=== PATIENT | female | born 1960 | race Caucasian/White ===

== ENCOUNTER 2016-10-20 13:45 | Emergency (ER) | payer OTHER ==
[~2016-10-20] VITALS: Ht 170.2 cm; Wt 72.0 kg
[2016-10-20 13:45] VITALS: BP 153/89; PULSE 106; RESP 18; TEMP 98.7
[~2016-10-20 13:45] MED LIST: ESTR0.62 VAGINAL; LISI10TA3 PO
[2016-10-20 14:16] LABS: AUTOMATED NEUTROPHIL # 7.4 TH/MM3 (1.8-7.7); BASOPHIL # 0.1 TH/MM3 (0-0.2); BASOPHIL % 0.5 % (0.0-2.0); EOSINOPHIL # 0.1 TH/MM3 (0-0.4); EOSINOPHIL % 0.9 % (0.0-4.0); HEMATOCRIT 42.7 % (35.0-46.0); HEMO FLAGS DIFF FINAL; LYMPH % 21.2 % (9.0-44.0); LYMPHOCYTE # 2.3 TH/MM3 (1.0-4.8); MEAN CORPUSCULAR HEMOGLOBIN 32.2 PG (27.0-34.0); MEAN CORPUSCULAR HGB CONC 34.2 % (32.0-36.0); NEUT % 69.4 % (16.0-70.0); PLATELET COUNT 231 TH/MM3 (150-450); RED BLOOD COUNT 4.54 MIL/MM3 (4.00-5.30); RED CELL DISTRIBUTION WIDTH 13.5 % (11.6-17.2); WHITE BLOOD COUNT 10.7 TH/MM3 (4.0-11.0)
[2016-10-20 14:30] LABS: BICARBONATE 22.1 MEQ/L (21.0-32.0); POTASSIUM 3.9 MEQ/L (3.5-5.1)
[2016-10-20 15:00] VITALS: BP 157/91; PULSE 104; RESP 16; O2SAT 100
[2016-10-20] MEDS ORDERED: IOHEXOL 350 MG/ML 10 ML VIAL (for RAD DIAG) IV ONE (15:21)
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
[2016-10-20] MEDS ORDERED: IBUP-232 PO (16:38)
[2016-10-20] MEDS ORDERED: IBUPROFEN 600 MG TAB PO ONE (16:45)
[2016-10-20] MEDS ORDERED: LORazepam 2 MG/ML VIAL IV PUSH ONE (17:15)
[2016-10-20 18:00] VITALS: BP 142/62; PULSE 106; RESP 16; O2SAT 97
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
[2016-10-20 19:09] VITALS: BP 115/77; PULSE 115; RESP 17; O2SAT 97
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
[2016-10-20] MEDS ORDERED: KETOROLAC TROMETHAMINE 60 MG/2 ML (IM) VIAL IM ONE (19:45)
== END 2016-10-20 20:54 | disposition home or self-care (01) ==
LOC: NEPC 13:45
DX: S09.90XA Unspecified injury of head, initial encounter (principal); R51 Headache; R10.2 Pelvic and perineal pain; M54.2 Cervicalgia; I10 Essential (primary) hypertension; Z72.0 Tobacco use; V47.6XXA Car passenger injured in collision with fixed or stationary object in traffic accident, initial encounter
CPT/HCPCS: 70450; 71260; 72125; 72128; 72131; 72148; 73552; 74177; 80048; 85025; 96372; 96374; 99284; J1885; J2060; L0150; Q9967

== ENCOUNTER 2016-10-21 20:42 | Emergency (ER) | payer OTHER ==
[~2016-10-21] VITALS: Ht 170.2 cm; Wt 76.8 kg
[~2016-10-21 20:42] MED LIST changes: +IBUP-232 PO
[2016-10-21 20:44] VITALS: BP 123/91; PULSE 97; RESP 20; TEMP 98.2; O2SAT 95
[2016-10-21] MEDS ORDERED: SODIUM CHLORIDE 0.9% FLUSH 5 ML FLUSH IVF PRN (21:15)
[2016-10-21] MEDS ORDERED: SODIUM CHLOR 0.9% 1000 ML INJ 1,000 ML IV SCH (21:15)
[2016-10-21] MEDS ORDERED: ONDANSETRON HCL 4 MG/2 ML VIAL IV PUSH ONE ×2 (21:15→22:45)
[2016-10-21 21:33] LABS: AUTOMATED NEUTROPHIL # 3.1 TH/MM3 (1.8-7.7); BASOPHIL % 0.3 % (0.0-2.0); EOSINOPHIL # 0.1 TH/MM3 (0-0.4); EOSINOPHIL % 1.7 % (0.0-4.0); HEMATOCRIT 37.8 % (35.0-46.0); HEMO FLAGS DIFF FINAL; LYMPH % 43.4 % (9.0-44.0); LYMPHOCYTE # 3.2 TH/MM3 (1.0-4.8); MEAN CELL VOLUME 94.4 FL (80.0-100.0); MEAN CORPUSCULAR HEMOGLOBIN 31.3 PG (27.0-34.0); MEAN CORPUSCULAR HGB CONC 33.1 % (32.0-36.0); MONO % 10.2 % (0.0-8.0); NEUT % 44.4 % (16.0-70.0); PLATELET COUNT 200 TH/MM3 (150-450); RED CELL DISTRIBUTION WIDTH 13.4 % (11.6-17.2); WHITE BLOOD COUNT 7.1 TH/MM3 (4.0-11.0)
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
[2016-10-21 21:41] VITALS: O2SAT 98
[2016-10-21 21:41] LABS: CHLORIDE 108 MEQ/L (98-107); POTASSIUM 3.9 MEQ/L (3.5-5.1); SODIUM (NA) 142 MEQ/L (136-145)
[2016-10-21 21:44] LABS: ANION GAP 11 MEQ/L (5-15); BICARBONATE 23.5 MEQ/L (21.0-32.0); BLOOD UREA NITROGEN 29 MG/DL (7-18)
[2016-10-21 21:46] LABS: APTT (PATIENT) 25.3 SEC (24.3-30.1); PROTHROMBIN TIME - PATIENT 10.7 SEC (9.8-11.6)
[2016-10-21 21:47] LABS: ALT (GPT) 64 U/L (10-53); AST (GOT) 32 U/L (15-37); GLOMERULAR FILTRATION RATE 63 ML/MIN (>89)
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
[2016-10-21 21:49] VITALS: BP_SYST 126; BP_SYST 133; BP_SYST 134; BP_DIAS 74; BP_DIAS 79
[2016-10-21 21:49] LABS: TOTAL BILIRUBIN ADULT 0.3 MG/DL (0.2-1.0)
[2016-10-21 21:50] LABS: ALKALINE PHOSPHATASE 85 U/L (45-117)
[2016-10-21] MEDS ORDERED: MORPHINE SULFATE 4 MG/ML INJ IV PUSH ONE (22:45)
[2016-10-21 23:00] LABS: BLOOD, URINE SMALL (NEG); GLUCOSE,URINE NEG (NEG); KETONE, URINE TRACE mg/dL (NEG); NITRITE,URINE NEG (NEG)
[2016-10-21 23:13] LABS: URINE COLOR STRAW (YELLW/STRAW)
[2016-10-21 23:14] LABS: COMMENT (UR) CULT NOT INDICATED; CULTURE IF INDICATED CULT NOT INDICATED; RBC, URINE 0-3 /hpf (0-3); SQUAMOUS EPITHELIAL CELL URINE 0-5 /hpf (0-5); URIC ACID CRYSTALS, URINE FEW /hpf; WBC, URINE 0-2 /hpf (0-5)
[2016-10-21 23:15] VITALS: BP 129/84; PULSE 83; RESP 16; O2SAT 96
[2016-10-22] MEDS ORDERED: IOHEXOL 350 MG/ML 10 ML VIAL (for RAD DIAG) IV ONE (00:40)
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
[2016-10-22 01:59] VITALS: BP 106/70; PULSE 76; RESP 16; O2SAT 97
--- NOTE | 2016-10-22 11:06 | EKG ---
Date Performed: 10/21/2016 Time Performed: 21:26:24 PTAGE: 56 years EKG: Sinus rhythm . Normal ECG NO PREVIOUS TRACING DOCTOR: Von No Interpretating Date/Time 10/22/2016 11:04:47
== END 2016-10-22 02:26 | disposition home or self-care (01) ==
LOC: PHED 20:42
DX: S70.12XA Contusion of left thigh, initial encounter (principal); S70.11XA Contusion of right thigh, initial encounter; R06.02 Shortness of breath; R53.83 Other fatigue; R53.1 Weakness; I95.9 Hypotension, unspecified; F17.210 Nicotine dependence, cigarettes, uncomplicated; V43.62XA Car passenger injured in collision with other type car in traffic accident, initial encounter; Y93.I9 Activity, other involving external motion; Y92.410 Unspecified street and highway as the place of occurrence of the external cause; Y99.8 Other external cause status
CPT/HCPCS: 71010; 74177; 80053; 81001; 85025; 85610; 85730; 86850; 86900; 86901; 93005; 96361; 96374; 96375; 96376; 99285; J2270; J2405; J7030; Q9967

== ENCOUNTER 2017-03-30 10:59 | Emergency (ER) | payer OTHER ==
[~2017-03-30] VITALS: Ht 170.2 cm; Wt 75.0 kg
[2017-03-30 11:04] VITALS: BP 148/87; PULSE 106; RESP 16; TEMP 98.4; O2SAT 100
[2017-03-30] MEDS ORDERED: SODIUM CHLOR 0.9% 1000 ML INJ 1,000 ML IV SCH (11:23)
[2017-03-30 11:25] VITALS: O2SAT 100
[2017-03-30] MEDS ORDERED: ONDANSETRON HCL 4 MG/2 ML VIAL IVP ONE (11:30)
[2017-03-30] MEDS ORDERED: SODIUM CHLORIDE 0.9% FLUSH 10 ML FLUSH IV FLUSH PRN (11:30)
--- NOTE | 2017-03-30 11:33 | PD ---
HPI Chief Complaint: Abdominal Pain Time Seen by Provider: 11:17 Travel History International Travel<30 days: No Contact w/Intl Traveler<30days: No Traveled to known affect area: No History of Present Illness HPI The patient is 57 years old. She complains of a epigastric discomfort which radiates to the back in the region of the lower thoracic spine and into the region of the upper back between the scapula. Earlier in the week she developed nausea and had several episodes of diarrhea daily for 3 days. For the past 2 days she's had no diarrhea. Total body aches and pains were present at the time of onset of the nausea and diarrhea. The diarrhea was nonbloody. Whilst nauseated with diarrhea she lost her appetite and yesterday started eating soup and crackers. She has had no fever. PFSH Past Medical History Cardiovascular Problems: Yes (htn on meds) Diminished Hearing: No Hypertension: Yes Musculoskeletal: Yes (right hip and pelvic fx) ?: Not Menopausal: Yes : 5 Para: 4 Miscarriage: 1 Social History Alcohol Use: Yes (social ) Tobacco Use: Yes (1/2 PPD) Substance Use: No Allergies-Medications (Allergen,Severity, Reaction): Coded Allergies: Sulfa (Sulfonamide Antibiotics) (Unverified Allergy, Unknown, Doesn't remember , 03/30/17) metronidazole (Unverified Adverse Reaction, Severe, N/V, dizziness, ) Reported Meds & Prescriptions Reported Meds & Active Scripts Active Lortab (Hydrocodone-Acetaminophen) 5-325 Mg Tab 1-2 Tab PO Q6H PRN Reported Lisinopril 10 Mg Tab 20 Mg PO DAILY Review of Systems Except as stated in HPI: all other systems reviewed are Neg General / Constitutional: No: Fever Physical Exam Narrative GENERAL: 57-year-old female pleasant well-nourished well-developed SKIN: Warm and dry. HEAD: Atraumatic. Normocephalic. EYES: Pupils equal and round. No scleral icterus. No injection or drainage. ENT: No nasal bleeding or discharge. Mucous membranes pink and moist. NECK: Trachea midline. No JVD. CARDIOVASCULAR: Regular rate and rhythm. RESPIRATORY: No accessory muscle use. Clear to auscultation. Breath sounds equal bilaterally. GASTROINTESTINAL: Soft. No significant tenderness palpation on exam. MUSCULOSKELETAL: Extremities without clubbing, cyanosis, or edema. No obvious deformities. NEUROLOGICAL: Awake and alert. No obvious cranial nerve deficits. Motor grossly within normal limits. Five out of 5 muscle strength in the arms and legs. Normal speech. PSYCHIATRIC: Appropriate mood and affect; insight and judgment normal. Data Data Last Documented VS Vital Signs Date Time Temp Pulse Resp B/P (MAP) Pulse Ox O2 Delivery O2 Flow Rate FiO2 03/30/17 11:25 16 03/30/17 11:25 100 Room Air 03/30/17 11:04 98.4 106 148/87 (107) Vital signs reviewed Orders Orders Complete Blood Count With Diff (03/30/17 11:23) Comprehensive Metabolic Panel (03/30/17 11:23) Lipase (03/30/17 11:23) Urinalysis - C+S If Indicated (03/30/17 11:23) Iv Access Insert/Monitor (03/30/17 11:23) Ecg Monitoring (03/30/17 11:23) Oximetry (03/30/17 11:23) Ondansetron Inj (Zofran Inj) (03/30/17 11:30) Sodium Chlor 0.9% 1000 Ml Inj (Ns 1000 M (03/30/17 11:23) Sodium Chloride 0.9% Flush (Ns Flush) (03/30/17 11:30) Electrocardiogram (03/30/17 11:23) D-Dimer (03/30/17 11:23) Ct Pulmonary Angiogram (03/30/17 12:21) Troponin I (03/30/17 11:40) Iohexol 350 Inj (Omnipaque 350 Inj) (03/30/17 12:45) Labs Laboratory Tests Test 03/30/17 11:40 White Blood Count 5.8 TH/MM3 Red Blood Count 4.40 MIL/MM3 Hemoglobin 13.8 GM/DL Hematocrit 41.5 % Mean Corpuscular Volume 94.4 FL Mean Corpuscular Hemoglobin 31.4 PG Mean Corpuscular Hemoglobin Concent 33.3 % Red Cell Distribution Width 12.8 % Platelet Count 198 TH/MM3 Mean Platelet Volume 7.8 FL Neutrophils (%) (Auto) 44.7 % Lymphocytes (%) (Auto) 42.3 % Monocytes (%) (Auto) 10.3 % Eosinophils (%) (Auto) 2.3 % Basophils (%) (Auto) 0.4 % Neutrophils # (Auto) 2.7 TH/MM3 Lymphocytes # (Auto) 2.4 TH/MM3 Monocytes # (Auto) 0.6 TH/MM3 Eosinophils # (Auto) 0.1 TH/MM3 Basophils # (Auto) 0.0 TH/MM3 CBC Comment DIFF FINAL Differential Comment D-Dimer Quantitative (PE/DVT) 0.81 MG/L FEU Urine Collection Type CLEAN CATCH Urine Color YELLOW Urine Turbidity CLEAR Urine pH 6.0 Urine Specific [place] 1.007 Urine Protein NEG mg/dL Urine Glucose (UA) NEG mg/dL Urine Ketones NEG mg/dL Urine Occult Blood MOD Urine Nitrite NEG Urine Bilirubin NEG Urine Leukocyte Esterase NEG Urine RBC 4-9 /hpf Urine Squamous Epithelial Cells 0-5 /hpf Microscopic Urinalysis Comment CULT NOT INDICATED Urine Collection Time 11:40 Blood Urea Nitrogen 10 MG/DL Creatinine 0.67 MG/DL Random Glucose 99 MG/DL Total Protein 7.1 GM/DL Albumin 3.5 GM/DL Calcium Level 8.9 MG/DL Alkaline Phosphatase 86 U/L Aspartate Amino Transf (AST/SGOT) 32 U/L Alanine Aminotransferase (ALT/SGPT) 78 U/L Total Bilirubin 0.2 MG/DL Sodium Level 140 MEQ/L Potassium Level 3.5 MEQ/L Chloride Level 106 MEQ/L Carbon Dioxide Level 26.2 MEQ/L Anion Gap 8 MEQ/L Estimat Glomerular Filtration Rate 90 ML/MIN Troponin I LESS THAN 0.02 NG/ML Lipase 191 U/L MDM Medical Decision Making Medical Screen Exam Complete: Yes Emergency Medical Condition: Yes Medical Record Reviewed: Yes Differential Diagnosis Pancreatitis, esophageal hernia, atelectasis, coronary artery disease, effusion , pulmonary embolism Narrative Course CBC & BMP Diagram 03/30/17 11:40 Total Protein 7.1, Albumin 3.5, Calcium Level 8.9, Alkaline Phosphatase 86, Aspartate Amino Transf (AST/SGOT) 32, Alanine Aminotransferase (ALT/SGPT) 78 H, Total Bilirubin 0.2 The EKG reveals a sinus rhythm with a rate of 82 Lipase normal D-dimer 0.81 Last [address] Angiography 03/30/17 1221 Signed Impressions: Service Date/Time: Thursday, March 30, 2017 12:39 - CONCLUSION: 1. No PE is identified. Additionally, no abnormality is identified to explain the clinical symptoms. 2. Hepatic steatosis. Sven Wakefield MD Diagnosis Primary Impression: Epigastric discomfort Additional Impression: Atelectasis of left lung Referrals: Primary Care Physician 2 days Additional Instructions: You have a choice when it comes to health care, and we are glad that you chose [facility]. Hopefully, we have met your expectations on today's visit. You are welcome to return to [facility] at any time, as we are committed to meeting the health care needs of our community. Med/Other Pt SpecificInfo: Prescription(s) given Scripts Tramadol (Tramadol) 50 Mg Tab 100 MG PO Q6H Y for PAIN SCALE 6 TO 10, #20 TAB 0 Refills Prov: Abhijit Mendoza MD 03/30/17 Hydrocodone-Acetaminophen (Lortab) 5-325 Mg Tab 1-2 TAB PO Q6H Y for PAIN SCALE 6 TO 10, #15 TAB 0 Refills Prov: Abhijit Mendoza MD 03/30/17 Disposition: 01 DISCHARGE HOME Condition: Stable Abhijit Mendoza MD Mar 30, 2017 11:33
[2017-03-30 11:47] LABS: AUTOMATED NEUTROPHIL # 2.7 TH/MM3 (1.8-7.7); BASOPHIL % 0.4 % (0.0-2.0); BLOOD, URINE MOD (NEG); EOSINOPHIL # 0.1 TH/MM3 (0-0.4); EOSINOPHIL % 2.3 % (0.0-4.0); GLUCOSE,URINE NEG (NEG); HEMATOCRIT 41.5 % (35.0-46.0); HEMO FLAGS DIFF FINAL; KETONE, URINE NEG (NEG); LYMPH % 42.3 % (9.0-44.0); LYMPHOCYTE # 2.4 TH/MM3 (1.0-4.8); MEAN CELL VOLUME 94.4 FL (80.0-100.0); MEAN CORPUSCULAR HEMOGLOBIN 31.4 PG (27.0-34.0); MEAN CORPUSCULAR HGB CONC 33.3 % (32.0-36.0); MONO % 10.3 % (0.0-8.0); NEUT % 44.7 % (16.0-70.0); NITRITE,URINE NEG (NEG); PLATELET COUNT 198 TH/MM3 (150-450); RED CELL DISTRIBUTION WIDTH 12.8 % (11.6-17.2); WHITE BLOOD COUNT 5.8 TH/MM3 (4.0-11.0)
[2017-03-30 12:02] LABS: CHLORIDE 106 MEQ/L (98-107); POTASSIUM 3.5 MEQ/L (3.5-5.1); SODIUM (NA) 140 MEQ/L (136-145)
[2017-03-30 12:06] LABS: ANION GAP 8 MEQ/L (5-15); BICARBONATE 26.2 MEQ/L (21.0-32.0); BLOOD UREA NITROGEN 10 MG/DL (7-18)
[2017-03-30 12:09] LABS: ALT (GPT) 78 U/L (10-53); AST (GOT) 32 U/L (15-37); GLOMERULAR FILTRATION RATE 90 ML/MIN (>89)
[2017-03-30 12:10] LABS: TOTAL BILIRUBIN ADULT 0.2 MG/DL (0.2-1.0)
[2017-03-30 12:12] LABS: ALKALINE PHOSPHATASE 86 U/L (45-117)
[2017-03-30 12:28] LABS: COMMENT (UR) CULT NOT INDICATED; CULTURE IF INDICATED CULT NOT INDICATED; METHOD OF COLLECTION CLEAN CATCH; SQUAMOUS EPITHELIAL CELL URINE 0-5 /hpf (0-5); URINE COLOR YELLOW (YELLW/STRAW)
[2017-03-30] MEDS ORDERED: IOHEXOL 350 MG/ML 10 ML VIAL (for RAD DIAG) IVCONTRAST ONE (12:45)
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
[2017-03-30 13:30] VITALS: BP 144/89; PULSE 82; RESP 18; O2SAT 99
[2017-03-30] MEDS ORDERED: HYDR-3533 PO (13:30)
[2017-03-30] MEDS ORDERED: TRAM50TA PO (13:31)
--- NOTE | 2017-03-31 18:49 | EKG ---
Date Performed: 03/30/2017 Time Performed: 11:29:43 PTAGE: 57 years EKG: Sinus rhythm NORMAL ECG PREVIOUS TRACING : 10/21/2016 21.26 Compared to prior tracing no significant change DOCTOR: Checo Haque Interpretating Date/Time 03/31/2017 18:47:39
== END 2017-03-30 13:55 | disposition home or self-care (01) ==
LOC: PHED 10:59
DX: R10.13 Epigastric pain (principal); J98.11 Atelectasis; I10 Essential (primary) hypertension
CPT/HCPCS: 71275; 80053; 81001; 83690; 84484; 85025; 85379; 93005; 94150; 96360; 99285; J7030; Q9967

== ENCOUNTER 2017-07-23 14:20 | Emergency (ER) | payer OTHER ==
[~2017-07-23] VITALS: Ht 170.2 cm; Wt 76.0 kg
[~2017-07-23 14:20] MED LIST changes: -ESTR0.62 VAGINAL; +HYDR-3533 PO; -IBUP-232 PO; +TRAM50TA PO
[2017-07-23 14:26] VITALS: BP 161/97; PULSE 119; RESP 16; TEMP 98.8; O2SAT 98
--- NOTE | 2017-07-23 17:17 | PD ---
HPI Chief Complaint: Back/ Neck Pain or Injury Time Seen by Provider: 16:47 Travel History International Travel<30 days: No Contact w/Intl Traveler<30days: No Traveled to known affect area: No History of Present Illness HPI 57-year-old female presents to the ED for evaluation of burning pain in the sacral area, radiating to the buttocks, down the legs and into the feet. Described as a soreness that can also be burning, shooting pain. Rated 8/10. Ongoing for the last few weeks, worsening as of late. Patient can identify no acute injury to the area. She states that she "rides around on [place]." She denies numbness, tingling, weakness of the lower extremities. She endorses distant trauma of the pelvis and right hip with ORIF. She states that she was recently treated for bacterial vaginitis and that she feels as if the burning pain has "moved to the back." She denies urinary urgency, dysuria, vaginal discharge, changes in bowel habits, melena, hematochezia. PFSH Past Medical History Cardiovascular Problems: Yes (htn on meds) Diminished Hearing: No Hypertension: Yes Musculoskeletal: Yes (right hip and pelvic fx) Tetanus Vaccination: < 5 Years Influenza Vaccination: No ?: Not Menopausal: Yes : 5 Para: 4 Miscarriage: 1 Social History Alcohol Use: Yes (Social) Tobacco Use: Yes (Occ 5-6 cigs day ) Substance Use: No Allergies-Medications (Allergen,Severity, Reaction): Coded Allergies: Sulfa (Sulfonamide Antibiotics) (Unverified Allergy, Unknown, Doesn't remember , 07/23/17) metronidazole (Unverified Adverse Reaction, Severe, N/V, dizziness, ) Reported Meds & Prescriptions Reported Meds & Active Scripts Active Neurontin (Gabapentin) 300 Mg Cap 300 Mg PO BID Ibuprofen 600 Mg Tab 600 Mg PO Q8H Reported Lisinopril 10 Mg Tab 20 Mg PO DAILY Review of Systems Except as stated in HPI: all other systems reviewed are Neg Physical Exam Narrative GENERAL: Well-nourished, well-developed nontoxic appearing white female in no acute distress. SKIN: Focused skin assessment warm/dry. HEAD: Normocephalic. EYES: No scleral icterus. No injection or drainage. NECK: Supple, trachea midline. No JVD or lymphadenopathy. CARDIOVASCULAR: Regular rate and rhythm without murmurs, gallops, or rubs. RESPIRATORY: Breath sounds clear and equal bilaterally. No accessory muscle use. GASTROINTESTINAL: Abdomen soft, non-tender, nondistended. Active bowel sounds. MUSCULOSKELETAL: No cyanosis, or edema. 5/5 strength of plantarflexion, dorsiflexion bilaterally. BACK: No obvious deformity. No CVA tenderness. No midline tenderness to palpation. Tender to palpation in the distal tip of the coccyx and musculature of the buttocks bilaterally. Data Data Last Documented VS Vital Signs Date Time Temp Pulse Resp B/P (MAP) Pulse Ox O2 Delivery O2 Flow Rate FiO2 07/23/17 14:26 98.8 119 16 161/97 (118) 98 Orders Orders Hip, Uni(Ap&Lat) W Ap Pelvis (07/23/17 17:11) Sacrum And Coccyx (07/23/17 ) Urinalysis - C+S If Indicated (07/23/17 17:11) Ed Discharge Order (07/23/17 18:22) Labs Laboratory Tests Test 07/23/17 17:55 Urine Color YELLOW Urine Turbidity CLEAR Urine pH 5.5 Urine Specific [place] 1.010 Urine Protein NEG mg/dL Urine Glucose (UA) NEG mg/dL Urine Ketones NEG mg/dL Urine Occult Blood SMALL Urine Nitrite NEG Urine Bilirubin NEG Urine Leukocyte Esterase NEG Urine RBC 0-3 /hpf Urine WBC 0-2 /hpf Urine Squamous Epithelial Cells 0-5 /hpf Microscopic Urinalysis Comment CULT NOT INDICATED MDM Medical Decision Making Medical Screen Exam Complete: Yes Emergency Medical Condition: Yes Differential Diagnosis Fracture versus musculoskeletal pain versus neuropathy versus coccydynia versus other Narrative Course 57-year-old female presents to the ED for evaluation of burning pain in the sacral area, radiating to the buttocks, down the legs and into the feet. Described as a soreness that can also be burning, shooting pain. Ongoing for the last few weeks, worsening as of late. Endorses his history of trauma. Vitals reviewed. Physical exam reveals tenderness to palpation in the distal tip of the coccyx and across the. The buttocks but there is no focal neuro deficits or weakness in the lower extremities. X-ray of the hip unremarkable for acute injury. X-ray of the sacrum and coccyx reveals anterior displacement of the distal coccyx without acute fracture. I discussed this result with the patient. I recommended that she follow up with the neurologist with orthopedist. She is provided a short course of anti-inflammatories and gabapentin. She is instructed to use a donut pillow, follow-up as discussed. She is agreeable with this plan. She is stable and discharged home. Diagnosis Primary Impression: Coccydynia Referrals: Alfonso Flores MD Patient Instructions: Coccyx Injury (ED), General Instructions Additional Instructions: Rest, hydrate. Return to normal, gentle activities as tolerated. Use a donut pillow as discussed. Take medication as prescribed. Follow-up with the primary care provider on as planned. Consider evaluation by the orthopedist or neurologist as well. Return to the ED for worsening symptoms or any urgent or emergent medical condition. Med/Other Pt SpecificInfo: Prescription(s) given Scripts Gabapentin (Neurontin) 300 Mg Cap 300 MG PO BID, #30 CAP 0 Refills Prov: Mp Cutler MD 07/23/17 Ibuprofen (Ibuprofen) 600 Mg Tab 600 MG PO Q8H for Inflammation, #15 TAB 0 Refills Prov: Mp Cutler MD 07/23/17 Disposition: DISCHARGE HOME Condition: Stable Elly Huynh Jul 23, 2017 17:17
--- NOTE | 2017-07-23 17:56 | RADRPT ---
EXAM DATE/TIME: 07/23/2017 17:26 [facility] COMPARISON: No previous studies available for comparison. INDICATIONS : Pain in sacrum that radiates down right leg. No known trauma. MEDICAL HISTORY : None. SURGICAL HISTORY : None. ENCOUNTER: Initial ACUITY: 1 week PAIN SCORE: 4/10 LOCATION: Sacrum. FINDINGS: There is approximate half shaft length posterior displacement of the distal coccyx. Osseous structure s appear intact without evidence for acute bony fracture. The sacral ala and foramina appear symmetri c and intact. The prevertebral soft tissues are within normal limits. CONCLUSION: 1. Mild, near 50% of the width, posterior displacement of the distal coccyx without acute fracture. Jose Francisco Schaefer MD on July 23, 2017 at 17:49 Board Certified Radiologist. This report was verified electronically.
--- NOTE | 2017-07-23 17:57 | RADRPT ---
EXAM DATE/TIME: 07/23/2017 17:26 [facility] COMPARISON: No previous studies available for comparison. INDICATIONS : Pain in sacrum that radiates down right leg. No known trauma. MEDICAL HISTORY : None. SURGICAL HISTORY : ORIF right femur. ENCOUNTER: Initial ACUITY: 1 week PAIN SCORE: 4/10 LOCATION: Right hip FINDINGS: Postsurgical features of prior intramedullary mera and compression screw fixation of the right femur. Hardware appears intact without evidence for lucency. Osseous structures appear intact without eviden ce for acute bony fracture. Soft tissues are grossly unremarkable. CONCLUSION: 1. Post surgical features of right femoral ORIF without intact hardware and no acute fracture. Jose Francisco Schaefer MD on July 23, 2017 at 17:53 Board Certified Radiologist. This report was verified electronically.
[2017-07-23 18:02] LABS: BILIRUBIN, URINE NEG (NEG); BLOOD, URINE SMALL (NEG); GLUCOSE,URINE NEG (NEG); KETONE, URINE NEG (NEG); NITRITE,URINE NEG (NEG); PH, URINE 5.5 (5.0-8.5); URINE LEUKOCYTE ESTERASE NEG (NEG)
[2017-07-23 18:08] LABS: URINE COLOR YELLOW (YELLW/STRAW); WBC, URINE 0-2 /hpf (0-5)
[2017-07-23 18:09] LABS: RBC, URINE 0-3 /hpf (0-3); SQUAMOUS EPITHELIAL CELL URINE 0-5 /hpf (0-5)
[2017-07-23] MEDS ORDERED: IBUP-232 PO (18:21)
[2017-07-23] MEDS ORDERED: NEUR300C PO (18:21)
== END 2017-07-23 18:29 | disposition home or self-care (01) ==
LOC: PHED 14:20 → PHEFT 18:29
DX: M53.3 Sacrococcygeal disorders, not elsewhere classified (principal); I10 Essential (primary) hypertension; Z72.0 Tobacco use
CPT/HCPCS: 72220; 73502; 81001; 99284

== ENCOUNTER 2017-08-28 14:38 | Emergency (ER) | payer OTHER ==
[~2017-08-28] VITALS: Ht 170.2 cm; Wt 76.0 kg
[~2017-08-28 14:38] MED LIST changes: -HYDR-3533 PO; +IBUP-232 PO; +NEUR300C PO; -TRAM50TA PO
[2017-08-28 14:40] VITALS: BP 154/87; PULSE 105; RESP 16; TEMP 98.1; O2SAT 97
--- NOTE | 2017-08-28 21:30 | EKG ---
Date Performed: 08/28/2017 Time Performed: 15:00:02 PTAGE: 57 years EKG: Sinus rhythm NORMAL ECG PREVIOUS TRACING : 03/30/2017 11.29 Since previous tracing, no significant change noted DOCTOR: Checo Haque Interpretating Date/Time 08/28/2017 21:27:56
== END 2017-08-28 15:39 | disposition left against medical advice (07) ==
LOC: PHED 14:38
DX: R42 Dizziness and giddiness (principal)
CPT/HCPCS: 93005; 99281

== ENCOUNTER 2017-10-01 03:46 | Emergency (ER) | payer OTHER ==
[2017-10-01 04:06] VITALS: BP 140/94; PULSE 106; RESP 18; TEMP 98; O2SAT 99
[2017-10-01] MEDS ORDERED: DIPH25CA PO (04:26)
[2017-10-01] MEDS ORDERED: PERM5CRE11 TOPICAL (04:26)
--- NOTE | 2017-10-01 04:26 | PD ---
HPI Chief Complaint: Skin Problem Time Seen by Provider: 04:23 Travel History International Travel<30 days: No Contact w/Intl Traveler<30days: No Traveled to known affect area: No History of Present Illness HPI 57-year-old female patient with history of hypertension here because she states that 2 days ago her son had brought in clippers that he had used and everyone in the family is having itchiness on the scalp, arms and legs, and they are concerned that it could be scabies. She has noticed spots on her body as well. She denies any other issues. Modifying Factors: None Associated Signs & Symptoms: Possible scabies Risk Factors: Sick contacts PFSH Past Medical History Cardiovascular Problems: Yes (htn on meds) Diminished Hearing: No Hypertension: Yes Musculoskeletal: Yes (right hip and pelvic fx) LMP: menopause Menopausal: Yes : 5 Para: 4 Miscarriage: 1 Past Surgical History Surgical History: No Previous Surgery Social History Alcohol Use: Yes (Social) Tobacco Use: Yes (Occ 5-6 cigs day ) Substance Use: No Allergies-Medications (Allergen,Severity, Reaction): Coded Allergies: Sulfa (Sulfonamide Antibiotics) (Verified Allergy, Unknown, Doesn't remember , 10/01/17) metronidazole (Verified Adverse Reaction, Severe, N/V, dizziness, 10/01/17) Reported Meds & Prescriptions Reported Meds & Active Scripts Active Neurontin (Gabapentin) 300 Mg Cap 300 Mg PO BID Ibuprofen 600 Mg Tab 600 Mg PO Q8H Reported Lisinopril 10 Mg Tab 20 Mg PO DAILY Review of Systems Except as stated in HPI: all other systems reviewed are Neg Physical Exam Narrative GENERAL: Well-developed middle-aged female patient currently not in acute distress. Awake and oriented 3. SKIN: Focused skin assessment warm/dry. Patient has some small punctate erythematous spots on her abdomen and leg. HEAD: Atraumatic. Normocephalic. EYES: Pupils equal and round. No scleral icterus. No injection or drainage. ENT: No nasal bleeding or discharge. Mucous membranes pink and moist. NECK: Trachea midline. No JVD. CARDIOVASCULAR: Regular rate and rhythm. No murmur appreciated. RESPIRATORY: No accessory muscle use. Clear to auscultation. Breath sounds equal bilaterally. GASTROINTESTINAL: Abdomen soft, non-tender, nondistended. Hepatic and splenic margins not palpable. MUSCULOSKELETAL: No obvious deformities. No clubbing. No cyanosis. No edema. NEUROLOGICAL: Awake and alert. No obvious cranial nerve deficits. Motor grossly within normal limits. Normal speech. PSYCHIATRIC: Appropriate mood and affect; insight and judgment normal. Data Data Last Documented VS Vital Signs Date Time Temp Pulse Resp B/P (MAP) Pulse Ox O2 Delivery O2 Flow Rate FiO2 10/01/17 04:06 98.0 106 18 140/94 (109) 99 Room Air MDM Medical Decision Making Medical Screen Exam Complete: Yes Emergency Medical Condition: Yes Medical Record Reviewed: Yes Differential Diagnosis Bug bites versus scabies Narrative Course Considering her exposure, my plan would be to treat her. Follow-up with primary care physician as needed. Return for new issues as needed. Wash all clothes and bedding. Diagnosis Primary Impression: Scabies exposure Med/Other Pt SpecificInfo: Prescription(s) given Scripts Diphenhydramine (Diphenhydramine) 25 Mg Cap 25 MG PO Q6H Y for ITCHING, #15 CAP 0 Refills Prov: Marcio Polk MD 10/01/17 Permethrin Topical (Elimite Topical) 5% Cream 1 APPLIC TOPICAL ONCE for Scabies, #1 TUBE 0 Refills Prov: Marcio Polk MD 10/01/17 Disposition: DISCHARGE HOME Condition: Stable Marcio Polk MD Oct 01, 2017 04:26
== END 2017-10-01 04:44 | disposition home or self-care (01) ==
LOC: PHED 03:46
DX: L29.9 Pruritus, unspecified (principal); I10 Essential (primary) hypertension; F17.210 Nicotine dependence, cigarettes, uncomplicated; Z20.7 Contact with and (suspected) exposure to pediculosis, acariasis and other infestations
CPT/HCPCS: 99283